=== PATIENT | female | born 1940 | race Caucasian/White ===

== ENCOUNTER 2019-01-11 22:39 | Emergency (ER) | payer MEDICARE, SELFPAY ==
[2019-01-11 22:47] VITALS: BP 132/74; PULSE 90; RESP 17; TEMP 36.8; O2SAT 97; BMI 21.7
--- NOTE | 2019-01-11 22:55 | ED.NECK ---
HPI - Neck Pain/Injury General Chief Complaint: Neck Pain/Injury Stated Complaint: NECK PAIN Time Seen by Provider: 01/11/19 22:55 Source: patient Mode of arrival: ambulatory Limitations: no limitations History of Present Illness HPI Narrative: Patient is a 78-year-old female here for evaluation of bilateral however left greater than right upper back and neck pain. Patient states that the symptoms started yesterday. States she was working out in the yd yesterday. Last evening had quite a bit of discomfort especially with turning her head. No trauma. Has not tried anything for symptoms prior to arrival. Stated that she wanted checked out before she went to sleep this evening. Related Data Home Medications Medication Instructions Recorded Confirmed No Known Home Medications 01/11/19 01/11/19 Allergies Allergy/AdvReac Type Severity Reaction Status Date / Time No Known Allergies Allergy Uncoded 01/11/19 22:51 Review of Systems Constitutional Denies fever(s) and Denies headache(s) ENT Ears, Nose, Mouth, and Throat: Denies vertigo, Denies dizziness, Denies headache(s) and Reports neck pain Cardiovascular Denies chest pain and Denies dyspnea Respiratory Denies dyspnea Gastrointestinal Gastrointestinal: Denies abdominal pain Musculoskeletal Denies back pain, Denies myalgias, Denies arthralgias and Reports neck pain Comments: Neck pain Integumentary/Breasts Denies rash Neurologic Denies behavioral changes, Denies vertigo, Denies dizziness and Denies headache(s) Psychiatric Denies behavioral changes Hematologic/Lymphatic Denies easy bleeding and Denies easy bruising PFSH Surgical History No pertinent past surgical history (Acute) Social History Smoking Status: Never smoker Social History Smoking Status: Never smoker Exam Initial Vital Signs Initial Vital Signs: Vital Signs Temperature 98.2 F 01/11/19 22:47 Pulse Rate 90 01/11/19 22:47 Respiratory Rate 17 01/11/19 22:47 Blood Pressure 132/74 01/11/19 22:47 Pulse Oximetry 97 01/11/19 22:47 Const General: cooperative, comfortable, well developed, well groomed and No acute distress Orientation: alert, awake and oriented x3 HENMT Head: normal to inspection and normocephalic Face and sinus: normal facial exam Neck Lymphatic: No lymphadenopathy Back/Spine/Pelvis Cervical Spine: pain with cervical ROM, No cervical spinal tenderness and No step off deformity Thoracic/Lumbar Spine: No thoracic spinal tenderness and No lumbar spinal tenderness Other: Patient with muscle fullness bilaterally however left greater than right over the trapezius muscle. Skin Lesions: no lesions Rashes: no rashes Neuro General: alert, awake and oriented x3 Cognition: normal cognition Speech: speech normal Extrem General: normal to inspection and capillary refill normal Psych Appearance: grossly normal and well kempt Course Orders Ordered: Discontinued Medications Cyclobenzaprine HCl (Flexeril 10 Mg Prepack) 1 bottle MISC SEEINSTR ONE Stop: 01/11/19 23:02 Last Admin: 01/11/19 23:06 Dose: 1 bottle Vital Signs - 8 hr 01/11/19 22:47 Temperature 98.2 F Pulse Rate 90 Respiratory Rate 17 Blood Pressure 132/74 Pulse Oximetry 97 MDM - Neck Pain/Injury MDM Narrative Medical decision making narrative: Patient without trauma. She is afebrile. She was concerned about meningitis however her physical exam is not consistent with this. She does have muscle fullness in her left trapezius. I do suspect that she is having cervical spinal strain and muscle spasms. Will send home with a prescription for Flexeril. She was informed that this medication can make her drowsy. We discussed the importance of avoiding falling. Discussed return precautions and follow-up instructions. No indication for antibiotics radiologic studies. She expressed understanding and agreement with plan. Discharge Plan Departure Patient Disposition: Home Clinical Impression: Strain of neck muscle Qualifiers: Encounter type: initial encounter Qualified Code(s): S16.1XXA - Strain of muscle, fascia and tendon at neck level, initial encounter Discharge Date/Time: 01/11/19 23:10 Interventions: ED Discharge Assessment Last Done: 01/11/19 23:09 Instructions: DI for Neck Pain Activity Restrictions/Additional Instructions: The medicine you were given this evening can make you drowsy so be careful with walking to avoid falling. You can also use heat and ice and massage. Return to the emergency department for any new or worsening symptoms Prescriptions: No Action No Known Home Medications RF: 0 Referrals: Nelda Stephens MD [Primary Care Provider] -
[2019-01-11] MEDS: CYCLOBENZAPRINE 10 MG PREPACK 1 BOTTLE MISC (23:06)
== END 2019-01-11 23:10 | disposition home or self-care (01) ==
PROVIDERS: Emergency Provider Emergency Medicine; Family Provider Internal Medicine; PCP Internal Medicine
DX: S16.1XXA Strain of muscle, fascia and tendon at neck level, initial encounter (principal); Y93.H2 Activity, gardening and landscaping
CPT/HCPCS: 99282; 99283

== ENCOUNTER → 2019-02-26 16:25 | Outpatient (CLI) | payer MEDICARE, SELFPAY ==
--- NOTE | 2019-02-26 | DI.MG.S_ITS ---
BILATERAL DIGITAL SCREENING MAMMOGRAM 3D/2D WITH CAD: 02/26/2019 CLINICAL: Routine screening. Baseline exam. No prior exams were available for comparison. The tissue of both breasts is heterogeneously dense. This may lower the sensitivity of mammography. Current study was also evaluated with a Computer Aided Detection (CAD) system. No significant masses, calcifications, or other findings are seen in either breast. IMPRESSION: NEGATIVE There is no mammographic evidence of malignancy. A 1 year screening mammogram is recommended. This exam was interpreted at Station ID: [id number]. NOTE: For mammograms, a report in lay terms will be sent to the patient. Approximately 15% of breast malignancies will not be visualized mammographically. In the management of a palpable breast mass, a negative mammogram must not discourage biopsy of a clinically suspicious lesion. Electronically Signed By: lA cee/gilma:02/26/2019 16:58:40 letter sent: Normal Exam ACR BI-RADS Category 1: Negative 3341F
== END ==
PROVIDERS: PCP Internal Medicine; Visit Provider Internal Medicine
DX: Z12.31 Encounter for screening mammogram for malignant neoplasm of breast (principal)
CPT/HCPCS: 77063; 77067

== ENCOUNTER → 2019-08-12 19:21 | Outpatient (ROUT) | payer MEDICARE, SELFPAY ==
[2019-08-12 19:56] LABS: BUN Creatinine Ratio 43.3 (6-22); Blood Urea Nitrogen 26 mg/dL (7-17); Calcium 10.4 mg/dL (8.4-10.2); Carbon Dioxide 25 mmol/L (22-32); Chloride 104 mmol/L (98-107); Estimated Glomerular Filt Rate > 60.0 mL/min (>60); Glucose 96 mg/dL (80-110); HEMOLYSIS 17 (0-50); Potassium 4.6 mmol/L (3.4-5.1); Sodium 138 mmol/L (137-145); Uric Acid 4.3 mg/dL (2.5-6.2)
== END ==
PROVIDERS: PCP Internal Medicine; Visit Provider Internal Medicine
DX: M79.671 Pain in right foot (principal)
CPT/HCPCS: 80048; 84550

== ENCOUNTER → 2019-08-27 13:35 | Outpatient (CLI) | payer MEDICARE, SELFPAY | PROVIDERS: PCP Internal Medicine; Referring Provider Internal Medicine; Visit Provider Internal Medicine | DX: M81.0 Age-related osteoporosis without current pathological fracture (principal); Z78.0 Asymptomatic menopausal state; Z82.62 Family history of osteoporosis | CPT/HCPCS: 77080 ==

== ENCOUNTER → 2020-03-13 13:44 | Outpatient (CLI) | payer MEDICARE, SELFPAY ==
--- NOTE | 2020-03-13 | DI.CT.S_ITS ---
PROCEDURE: CT CHEST WO CON INDICATIONS: short of breath TECHNIQUE: Noncontrast 5 mm thick sections acquired from the pulmonary apices to the posterior costophrenic angles. 1 mm lung window, 5 mm thick coronal and sagittal and 7 mm axial MIP reformats were then acquired. For radiation dose reduction, the following was used: automated exposure control, adjustment of mA and/or kV according to patient size. COMPARISON: [facility], CT, THORAX WITHOUT CONTRAST, 06/29/2017, 11:30. , [facility], CR, CHEST 2VW, 10/06/2011, 10:12. [facility], CR, CHEST 2 VIEW, 06/22/2017, 14:16. FINDINGS: Image quality: Excellent. Lungs and pleura: No acute air space opacities are found but there appears to have been a long-standing disease process ongoing in the medial segment right middle lobe. There earliest available comparison chest plain film is from 10/06/11 and on the lateral view had shown irregular airspace disease diagonally across the cardiac silhouette. This same pattern present on chest plain film imaging 06/22/17. This also was present in the same area on CT scanning 06/29/17 and has only slightly worsened as indicated by a greater degree of peribronchial soft tissue thickening and development of mild cylindrical bronchiectasis. No pleural effusions or pneumothorax. Central and peripheral airways are patent and normal in caliber. Mediastinum: Heart size is normal. No pericardial effusion. No mediastinal adenopathy by size criteria. Thoracic aorta and central pulmonary arteries are normal in size. Esophagus is normal in caliber. No hiatal hernia. Bones and chest wall: No suspicious bony lesions. No vertebral body compression fractures. No axillary or supraclavicular adenopathy by size criteria. Thyroid gland is not well seen. Abdomen: Visualized upper abdominal solid organs and bowel loops appear normal in the absence of contrast. IMPRESSION: Slowly worsening chronic airspace disease within the medial segment right middle lobe from 2012 plain film imaging through the comparison chest CT from June 2017. Mild increased chronic bronchitis, interval development of mild cylindrical bronchiectasis. Low-grade chronic infection can produce such an appearance. No malignancy found. [facility] consultation may be warranted for diagnostic bronchial lavage. Dictated by: Igor Menchaca M.D. on 03/13/2020 at 15:03 Approved by: Igor Menchaca M.D. on 03/13/2020 at 15:11
[2020-03-13 15:41] LABS: BUN Creatinine Ratio 26.4 (6-22); Blood Urea Nitrogen 19 mg/dL (7-17); Calcium 11.2 mg/dL (8.4-10.2); Carbon Dioxide 32 mmol/L (22-32); Chloride 103 mmol/L (98-107); Estimated Glomerular Filt Rate > 60.0 mL/min (>60); Glucose 88 mg/dL (80-110); HEMOLYSIS < 15 (0-50); Potassium 5.2 mmol/L (3.4-5.1); Sodium 139 mmol/L (137-145)
== END ==
PROVIDERS: PCP Internal Medicine; Referring Provider Internal Medicine; Visit Provider Internal Medicine
DX: R06.02 Shortness of breath (principal); R05 Cough; J47.9 Bronchiectasis, uncomplicated; J42 Unspecified chronic bronchitis; M81.0 Age-related osteoporosis without current pathological fracture
CPT/HCPCS: 36415; 71250; 80048

== ENCOUNTER → 2020-03-17 15:06 | Outpatient (CLI) | payer MEDICARE, SELFPAY ==
[2020-03-17 15:47] LABS: Add Manual Diff / Slide Review NO; Basophils Absolute Auto 100 /uL (0-100); Basophils Percent Auto 1.1 % (0-2); Eosinophils Absolute Auto 200 /uL (0-450); Eosinophils Percent Auto 3.6 % (2-4); Hematocrit 43.1 % (36-46); Hemoglobin 14.1 g/dL (12.0-16.0); Lymphocytes Absolute Auto 1400 /uL (1100-4500); Lymphocytes Percent Auto 28.2 % (25-40); Mean Corpuscular HGB Conc 32.8 % (30-36); Mean Corpuscular Volume 91.5 fL (80-100); Monocytes Absolute Auto 400 /uL (0-900); Monocytes Percent Auto 8.9 % (3-14); Neutrophils Absolute Auto 2900 /uL (1500-7000); Neutrophils Percent Auto 58.2 % (50-75); Platelet Count 187 X10^3/uL (150-400); Red Blood Cell Count 4.71 X10^6/uL (4.0-5.2); Red Cell Distribution Width 14.2 % (11.6-14.8); White Blood Cell Count 4.9 X10^3/uL (4.5-11.0)
[2020-03-17 15:58] LABS: Alanine Aminotransferase 17 IU/L (<35); Albumin 4.3 g/dL (3.5-5.0); Albumin Globulin Ratio 1.2 (1.0-2.8); Alkaline Phosphatase 84 U/L (38-126); Aspartate Aminotransferase 28 IU/L (14-36); BUN Creatinine Ratio 22.9 (6-22); Bilirubin Total 0.3 mg/dL (0.2-1.3); Blood Urea Nitrogen 16 mg/dL (7-17); Calcium 10.9 mg/dL (8.4-10.2); Carbon Dioxide 29 mmol/L (22-32); Chloride 103 mmol/L (98-107); Estimated Glomerular Filt Rate > 60.0 mL/min (>60); Globulin 3.6 g/dL (1.7-4.1); Glucose 97 mg/dL (80-110); HEMOLYSIS < 15 (0-50); Potassium 4.3 mmol/L (3.4-5.1); Sodium 138 mmol/L (137-145); Total Protein 7.9 g/dL (6.3-8.2)
[2020-03-17 16:28] LABS: TSH w/ Reflex to FT4 1.97 uIU/mL (0.47-4.68)
[2020-03-18 08:27] LABS: Parathyroid Hormone Int 36 pg/mL (15-65)
[2020-03-19 11:59] LABS: Vitamin D 25 Hydroxy (D3) 50.2 ng/mL (30.0-100.0)
== END ==
PROVIDERS: PCP Internal Medicine; Referring Provider Internal Medicine; Visit Provider Physician Assistant
DX: M81.0 Age-related osteoporosis without current pathological fracture (principal); E83.52 Hypercalcemia; E87.5 Hyperkalemia; R05 Cough
CPT/HCPCS: 36415; 80053; 82306; 83970; 84443; 85025

== ENCOUNTER → 2020-03-27 12:57 | Outpatient (CLI) | payer MEDICARE, SELFPAY ==
--- NOTE | 2020-04-15 14:20 | ONC.SCHED ---
Left message for patient to call to schedule reclast as ordered by Dr. Stephens within the week.
== END ==
PROVIDERS: PCP Internal Medicine; Referring Provider Internal Medicine; Visit Provider Internal Medicine
DX: R05 Cough (principal)
CPT/HCPCS: 87070; 87116; 87205; 87206

== ENCOUNTER → 2020-04-18 12:14 | Outpatient (CLI) | payer MEDICARE, SELFPAY | PROVIDERS: PCP Internal Medicine; Referring Provider Internal Medicine; Visit Provider Internal Medicine | DX: J47.9 Bronchiectasis, uncomplicated (principal) | CPT/HCPCS: 87116; 87206 ==

== ENCOUNTER → 2020-04-22 13:11 | Oncology outpatient (ONC) | payer MEDICARE, SELFPAY ==
[2020-04-22 13:38] VITALS: BP 114/60; PULSE 73; RESP 16; TEMP 36.6; O2SAT 97
[2020-04-22 13:49] LABS: BUN Creatinine Ratio 33.3 (6-22); Blood Urea Nitrogen 24 mg/dL (7-17); Calcium 10.5 mg/dL (8.4-10.2); Carbon Dioxide 30 mmol/L (22-32); Chloride 104 mmol/L (98-107); Estimated Glomerular Filt Rate > 60.0 mL/min (>60); Glucose 115 mg/dL (80-110); HEMOLYSIS < 15 (0-50); Potassium 4.1 mmol/L (3.4-5.1); Sodium 138 mmol/L (137-145)
--- NOTE | 2020-04-22 14:03 | PC.NURSE ---
BUN/CR Patient's BUN elevated today, Dr. Nelda Stephens contacted concerning lab result and reclast infusion. Dr. Stephens said to go ahead with reclast infusion today.
[2020-04-22] MEDS: ZOLEDRONIC ACID 5 MG in SODIUM CHLORIDE 0.9% 100 ML 425 ML IV (14:15)
== END ==
LOC: ONC 13:12
PROVIDERS: PCP Internal Medicine; Referring Provider Internal Medicine; Visit Provider Internal Medicine
DX: M81.0 Age-related osteoporosis without current pathological fracture (principal)
CPT/HCPCS: 36415; 80048; 96365; J3489

== ENCOUNTER → 2020-04-25 17:23 | Outpatient (CLI) | payer MEDICARE, SELFPAY | PROVIDERS: PCP Internal Medicine; Referring Provider Internal Medicine; Visit Provider Internal Medicine | DX: R05 Cough (principal) | CPT/HCPCS: 87070; 87205 ==

== ENCOUNTER → 2020-04-30 10:26 | Outpatient (CLI) | payer MEDICARE, SELFPAY ==
[2020-04-30 12:08] LABS: Add Manual Diff / Slide Review NO; Basophils Absolute Auto 0 /uL (0-100); Basophils Percent Auto 0.5 % (0-2); Eosinophils Absolute Auto 100 /uL (0-450); Hematocrit 39.5 % (36-46); Lymphocytes Absolute Auto 800 /uL (1100-4500); Lymphocytes Percent Auto 9.9 % (25-40); Mean Corpuscular Volume 90.9 fL (80-100); Monocytes Absolute Auto 700 /uL (0-900); Monocytes Percent Auto 8.1 % (3-14); Neutrophils Absolute Auto 6700 /uL (1500-7000); Neutrophils Percent Auto 80.5 % (50-75); Platelet Count 247 X10^3/uL (150-400); Red Blood Cell Count 4.34 X10^6/uL (4.0-5.2); Red Cell Distribution Width 13.9 % (11.6-14.8); White Blood Cell Count 8.3 X10^3/uL (4.5-11.0)
[2020-04-30 12:12] LABS: Alanine Aminotransferase 23 IU/L (<35); Albumin 3.9 g/dL (3.5-5.0); Albumin Globulin Ratio 1.1 (1.0-2.8); Alkaline Phosphatase 83 U/L (38-126); Aspartate Aminotransferase 25 IU/L (14-36); BUN Creatinine Ratio 23.9 (6-22); Bilirubin Total 0.7 mg/dL (0.2-1.3); Blood Urea Nitrogen 16 mg/dL (7-17); Calcium 10.1 mg/dL (8.4-10.2); Carbon Dioxide 30 mmol/L (22-32); Chloride 104 mmol/L (98-107); Estimated Glomerular Filt Rate > 60.0 mL/min (>60); Globulin 3.6 g/dL (1.7-4.1); Glucose 112 mg/dL (80-110); HEMOLYSIS < 15 (0-50); Potassium 4.3 mmol/L (3.4-5.1); Sodium 138 mmol/L (137-145); Total Protein 7.5 g/dL (6.3-8.2)
[2020-04-30 12:16] LABS: Appearance Urine UA CLEAR; Bilirubin Urine UA NEGATIVE (NEGATIVE); Color Urine UA YELLOW; Glucose Urine UA NEGATIVE (Negative); Ketones Urine UA NEGATIVE (NEGATIVE); Leukocyte Esterase Urine UA TRACE (NEGATIVE); Nitrite Urine UA NEGATIVE (Negative); Occult Blood Urine UA TRACE-LYSED (Negative); Protein Urine UA NEGATIVE (Negative); Specific Gravity Urine UA >=1.030 (1.000-1.035); Urobilinogen Urine UA 0.2 E.U./dL (0.2)
[2020-04-30 12:21] LABS: Troponin I < 0.012 ng/mL (0.01-0.034)
[2020-04-30 12:51] LABS: Bacteria Urine Occasional (0-1); Culture Indicated Urine Cult Not Indicated; RBC Urine 0-1/HPF (0-5/HPF); Renal Epithelial Cells Urine 0-1/HPF (0-1/HPF); Squamous Epithelial Cell Urine 1-5 /HPF (0-5/HPF); Transitional Epi Cells Urine 0-1/HPF (0-5/HPF); WBC Urine 0-1/HPF (0-5/HPF)
== END ==
PROVIDERS: PCP Internal Medicine; Referring Provider Internal Medicine; Visit Provider Internal Medicine
DX: R50.9 Fever, unspecified (principal); R07.9 Chest pain, unspecified
CPT/HCPCS: 36415; 80053; 81001; 84484; 85025

== ENCOUNTER → 2020-06-02 12:54 | Outpatient (CLI) | payer MEDICARE, SELFPAY | PROVIDERS: PCP Internal Medicine; Referring Provider Internal Medicine; Visit Provider Internal Medicine | DX: J47.9 Bronchiectasis, uncomplicated (principal) | CPT/HCPCS: 87116; 87206 ==

== ENCOUNTER → 2020-10-08 10:30 | Outpatient (CLI) | payer MEDICARE, SELFPAY ==
--- NOTE | 2020-10-08 10:34 | DI.CT.S_ITS ---
PROCEDURE: CT CHEST WO CON INDICATIONS: Other nonspecific abnormal finding of lung field. Chronic cough TECHNIQUE: Noncontrast 5 mm thick sections acquired from the pulmonary apices to the posterior costophrenic angles. 1 mm lung window, 5 mm thick coronal and sagittal and 7 mm axial MIP reformats were then acquired. For radiation dose reduction, the following was used: automated exposure control, adjustment of mA and/or kV according to patient size. COMPARISON: [facility], CT, THORAX WITHOUT CONTRAST, 06/29/2017, 11:30. [facility], CT, CT CHEST WO CON, 03/13/2020, 14:26. FINDINGS: Image quality: Excellent. Grossly unchanged consolidation and traction bronchiectasis seen in the anterior right middle lobe. There is also scarring atelectasis seen in the lingula. These findings were present on 06/29/17 although mildly progressed. Partially calcified presumed nodular scarring seen within the left apex, grossly unchanged. Few scattered calc despite granulomas are seen. No pleural effusions or pneumothorax. Central and peripheral airways are patent and normal in caliber. Mediastinum: Heart size is normal. Coronary artery calcifications are present. No pericardial effusion. No mediastinal adenopathy by size criteria. Thoracic aorta and central pulmonary arteries are normal in size. Esophagus is normal in caliber. No hiatal hernia. Bones and chest wall: No suspicious bony lesions. No vertebral body compression fractures. No axillary or supraclavicular adenopathy by size criteria. Thyroid is grossly unremarkable Abdomen: 2 mm nonobstructive left nephrolithiasis. IMPRESSION: Overall, grossly stable appearance since 03/13/20. Prominent scarring and traction bronchiectasis seen within the lingula and right middle lobe. Additional chronic and incidental findings as above. Dictated by: Leighton Monzon M.D. on 10/08/2020 at 14:48 Approved by: Leighton Monzon M.D. on 10/08/2020 at 14:57
== END ==
PROVIDERS: PCP Internal Medicine; Referring Provider Internal Medicine; Visit Provider Internal Medicine
DX: R91.1 Solitary pulmonary nodule (principal); R05 Cough; I25.10 Atherosclerotic heart disease of native coronary artery without angina pectoris; N20.0 Calculus of kidney; J47.9 Bronchiectasis, uncomplicated
CPT/HCPCS: 71250

== ENCOUNTER → 2020-11-25 11:57 | Outpatient (CLI) | payer MEDICARE, SELFPAY ==
--- NOTE | 2020-11-25 12:07 | DI.CT.S_ITS ---
PROCEDURE: CT HEAD/BRAIN WO CON INDICATIONS: Headache, unspecified TECHNIQUE: Noncontrast 4.5 mm thick angled axial sections acquired from the foramen magnum to the vertex, with coronal and sagittal reformats. For radiation dose reduction, the following was used: automated exposure control, adjustment of mA and/or kV according to patient size. COMPARISON: None. FINDINGS: Image quality: Excellent. CSF spaces: Basal cisterns are patent. No extra-axial fluid collections. The ventricles are symmetric in size and shape. Brain: No intracranial bleeds or masses. There is cerebral volume loss for age, with resultant ventricular and sulcal prominence. There are periventricular and deep white matter chronic small vessel ischemic changes. There is intracranial internal carotid artery atherosclerosis. Skull and face: Calvarium and visualized facial bones appear intact, without suspicious lesions. Sinuses: Visualized sinuses and mastoids are clear. IMPRESSION: No acute intracranial hemorrhage is seen. No displaced calvarial fracture can be seen. Note is made of age-appropriate brain parenchymal volume loss and chronic small vessel ischemic changes. Dictated by: Reinaldo Wei M.D. on 11/25/2020 at 11:23 Approved by: Reinaldo Wei M.D. on 11/25/2020 at 11:24
== END ==
PROVIDERS: PCP Internal Medicine; Referring Provider Internal Medicine; Visit Provider Internal Medicine
DX: R51.9 Headache, unspecified (principal)
CPT/HCPCS: 70450

== ENCOUNTER → 2021-04-19 15:25 | Outpatient (CLI) | payer MEDICARE, SELFPAY ==
--- NOTE | 2021-04-19 15:26 | DI.MG.S_ITS ---
BILATERAL DIGITAL SCREENING MAMMOGRAM 3D/2D WITH CAD: 04/19/2021 CLINICAL: Routine screening. Comparison is made to exam dated: 02/26/2019 [facility]. The tissue of both breasts is heterogeneously dense. This may lower the sensitivity of mammography. Current study was also evaluated with a Computer Aided Detection (CAD) system. No significant masses, calcifications, or other findings are seen in either breast. There has been no significant interval change. IMPRESSION: NEGATIVE There is no mammographic evidence of malignancy. A 1 year screening mammogram is recommended. This exam was interpreted at Station ID: [id number]. NOTE: For mammograms, a report in lay terms will be sent to the patient. Approximately 15% of breast malignancies will not be visualized mammographically. In the management of a palpable breast mass, a negative mammogram must not discourage biopsy of a clinically suspicious lesion. Electronically Signed By: Al cee/gilma:04/20/2021 07:49:11 letter sent: Normal Exam ACR BI-RADS Category 1: Negative 3341F
== END ==
PROVIDERS: PCP Family Medicine; Referring Provider Family Medicine; Visit Provider Family Medicine
DX: Z12.31 Encounter for screening mammogram for malignant neoplasm of breast (principal)
CPT/HCPCS: 77063; 77067

== ENCOUNTER → 2021-04-30 09:06 | Outpatient (CLI) | payer MEDICARE, SELFPAY ==
--- NOTE | 2021-04-30 09:07 | DI.MRI.S_ITS ---
PROCEDURE: MR HEAD/BRAIN WO CON INDICATIONS: Persistent headache status post concussion TECHNIQUE: Noncontrast axial T1 spin echo, axial T2 fast spin echo, sagittal and axial FLAIR, coronal T2 fast spin echo, axial gradient echo, axial diffusion and ADC through the brain. COMPARISON: None. FINDINGS: Cerebrum, Cerebellum and Brainstem: Mild cerebral and cerebellar volume loss as well as mild multifocal hyperintensities in the deep and subcortical white matter present. The diffusion sequence is normal without evidence of acute infarct. No intracranial hemorrhage, mass lesion or midline shift. Basal cisterns and foramen magnum contain appropriate anatomy and vascular flow voids. No evidence of dural or leptomeningeal thickening. Ventricles: Appropriate in size and position. No hydrocephalus. Skull Base: The bony sella, pituitary gland and infundibulum unremarkable. Clivus and craniovertebral relationships are appropriate. Visualized portions of the seventh and eighth cranial nerve complexes and internal auditory canals are within normal limits. Scalp and Calvarium: The scalp is unremarkable. Underlying calvarium has an appropriate marrow signal. Paranasal Sinuses: Visualized portions of the paranasal sinuses are clear. Mastoids: Unremarkable as visualized. No mastoid effusion present. Orbits: The orbits, globes and ocular muscles are unremarkable. IMPRESSION: Mild atrophy and white matter chronic ischemic change without intracranial hemorrhage, infarct or mass lesion. Approved by: Joao Berger M.D. on 04/30/2021 at 10:57
== END ==
PROVIDERS: PCP Family Medicine; Referring Provider Family Medicine; Visit Provider Family Medicine
DX: R51.9 Headache, unspecified (principal); S06.0X9A Concussion with loss of consciousness of unspecified duration, initial encounter
CPT/HCPCS: 70551

== ENCOUNTER → 2022-08-02 11:40 | Outpatient (CLI) | payer MEDICARE, SELFPAY | PROVIDERS: PCP Family Medicine; Referring Provider Family Medicine; Visit Provider Family Medicine | DX: M81.0 Age-related osteoporosis without current pathological fracture (principal); Z78.0 Asymptomatic menopausal state; R51.9 Headache, unspecified; Z90.710 Acquired absence of both cervix and uterus | CPT/HCPCS: 77080 ==

== ENCOUNTER → 2022-11-04 09:11 | Outpatient (CLI) | payer MEDICARE, SELFPAY ==
[2022-11-04 09:54] LABS: Add Manual Diff / Slide Review NO; Basophils Absolute Auto 0 /uL (0-100); Eosinophils Absolute Auto 200 /uL (0-450); Eosinophils Percent Auto 3.3 % (2-4); Hematocrit 42.2 % (36-46); Hemoglobin 14.2 g/dL (12.0-16.0); Lymphocytes Absolute Auto 1300 /uL (1100-4500); Lymphocytes Percent Auto 27.3 % (25-40); Mean Corpuscular HGB Conc 33.7 % (30-36); Mean Corpuscular Hemoglobin 30.6 PG (26-34); Mean Corpuscular Volume 90.8 fL (80-100); Monocytes Absolute Auto 400 /uL (0-900); Monocytes Percent Auto 9.3 % (3-14); Neutrophils Absolute Auto 2800 /uL (1500-7000); Neutrophils Percent Auto 59.1 % (50-75); Platelet Count 140 X10^3/uL (150-400); Red Blood Cell Count 4.64 X10^6/uL (4.0-5.2); Red Cell Distribution Width 14.2 % (11.6-14.8); White Blood Cell Count 4.8 X10^3/uL (4.5-11.0)
[2022-11-04 09:59] LABS: Alanine Aminotransferase 17 IU/L (<35); Albumin 4.1 g/dL (3.5-5.0); Albumin Globulin Ratio 1.2 (1.0-2.8); Alkaline Phosphatase 65 U/L (38-126); Aspartate Aminotransferase 25 IU/L (14-36); BUN Creatinine Ratio 26.2 (6-22); Bilirubin Total 0.4 mg/dL (0.2-1.3); Blood Urea Nitrogen 16 mg/dL (7-17); Calcium 9.9 mg/dL (8.4-10.2); Carbon Dioxide 27 mmol/L (22-32); Chloride 106 mmol/L (98-107); Estimated Glomerular Filt Rate > 60 mL/min (>60); Globulin 3.3 g/dL (1.7-4.1); Glucose 89 mg/dL (80-110); HEMOLYSIS < 15 (0-50); Potassium 4.5 mmol/L (3.4-5.1); Sodium 138 mmol/L (137-145); Total Protein 7.4 g/dL (6.3-8.2)
[2022-11-04 10:32] LABS: TSH w/ Reflex to FT4 1.33 uIU/mL (0.47-4.68)
[2022-11-05 03:40] LABS: Labcorp Hemoglobin (Hb) A1c 5.7 % (4.8-5.6)
== END ==
PROVIDERS: PCP Family Medicine; Referring Provider Family Medicine; Visit Provider Family Medicine
DX: Z00.00 Encounter for general adult medical examination without abnormal findings (principal); M81.0 Age-related osteoporosis without current pathological fracture
CPT/HCPCS: 36415; 80053; 83036; 84443; 85025

== ENCOUNTER → 2022-11-08 15:14 | Outpatient (CLI) | payer MEDICARE, SELFPAY ==
--- NOTE | 2022-11-08 15:15 | DI.MG.S_ITS ---
BILATERAL DIGITAL SCREENING MAMMOGRAM 3D/2D WITH CAD: 11/08/2022 CLINICAL: Routine screening. Comparison is made to exams dated: 04/19/2021 mammogram and 02/26/2019 mammogram - [facility]. Both breasts are heterogeneously dense, which may obscure small masses (category c / 51-75% glandular tissue). Current study was also evaluated with a Computer Aided Detection (CAD) system. No significant masses, calcifications, or other findings are seen in either breast. There has been no significant interval change. IMPRESSION: NEGATIVE There is no mammographic evidence of malignancy. A 1 year screening mammogram is recommended. Based on the Tyrer Cuzick model (a risk assessment model) the patient's lifetime risk is 2.0% and her 10 year risk is 0.0%. According to the ACR, ACS, and NCCN guidelines, an annual breast MRI exam along with mammogram is recommended if the patient's lifetime risk is 20% or greater. This exam was interpreted at Station ID: [id number]. NOTE: For mammograms, a report in lay terms will be sent to the patient. Approximately 15% of breast malignancies will not be visualized mammographically. In the management of a palpable breast mass, a negative mammogram must not discourage biopsy of a clinically suspicious lesion. Electronically Signed By: Aminata pagan/gilma:11/09/2022 13:02:04 letter sent: Normal Exam ACR BI-RADS Category 1: Negative 3341F
== END ==
PROVIDERS: PCP Family Medicine; Referring Provider Family Medicine; Visit Provider Family Medicine
DX: Z12.31 Encounter for screening mammogram for malignant neoplasm of breast (principal)
CPT/HCPCS: 77063; 77067

== ENCOUNTER 2023-01-19 07:56 | Day surgery (SDC) | payer MEDICARE, SELFPAY ==
[2023-01-19 08:14] VITALS: BP 123/67; PULSE 82; RESP 17; TEMP 36.2; O2SAT 100
[2023-01-19] MEDS: LACTATED RINGERS 1,000 ML 42 ML IV (08:25)
--- NOTE | 2023-01-19 09:06 | P.HP_ITS ---
History of Present Illness History of Present Illness Date Patient Seen: 01/19/23 Time Patient Seen: 09:06 Chief complaint: Screening Colonoscopy Narrative: Lubna is an 82-year-old woman who is here for colonoscopy. She has never had one before. Her daughter recently had a colonoscopy and had polyps removed. She has no rectal bleeding and no known family history of colon cancer. [facility] Medical History Concussion Headache Osteoporosis Postconcussion syndrome Pre-diabetes Preventative health care Seasonal allergic rhinitis Well adult exam Surgical History No pertinent past surgical history Social History household members: none Smoking Status: Never smoker alcohol intake: current Meds Home Medications and Allergies Home Medications Medication Instructions Recorded Confirmed Type fexofenadine 180 mg tablet 180 mg PO DAILY #30 tabs 04/27/21 01/19/23 Rx (Cat Allergy) denosumab 60 mg/mL subcutaneous 60 mg SUBCUT [id number] osteoporosi 10/21/22 01/19/23 Rx syringe (Prolia) #1 mL Allergies Allergy/AdvReac Type Severity Reaction Status Date / Time mannitol [From Reclast] AdvReac Intermediate Rash Verified 01/19/23 08:10 water for injection,sterile AdvReac Intermediate Rash Verified 01/19/23 08:10 [From Reclast] zoledronic acid AdvReac Intermediate Rash Verified 01/19/23 08:10 [From Reclast] Exam Vital Signs (past 8 hours): - 01/19/23 08:14 Temperature 97.2 F L Pulse Rate 82 Respiratory Rate 17 Blood Pressure 123/67 Pulse Oximetry 100 Oxygen Delivery Method Room Air Oxygen Delivery Method Room Air Const General: healthy appearing Assessment & Plan Assessment and plan (1) Colon cancer screening: Status: Acute Plan We reviewed the risks and benefits of colonoscopy for colon cancer screening and she would like to proceed.
--- NOTE | 2023-01-19 09:45 | P.OP.COLON_ITS ---
Operative Date/Time/Diagnoses Date of procedure: 01/19/23 Time of procedure: 09:45 Pre-op diagnosis: Colon cancer screening Post-op diagnosis: same Procedure & Clinicians Study performed: Colonoscopy Same procedure as scheduled: Yes Surgeon: Ankit Zee Procedure Notes Procedure in detail: Surgeon: Ankit Zee MD Anesthesia: Chuy Mccord CRNA Procedure: The patient was brought to the endoscopy suite, placed in left lateral decubitus position. The patient was connected to monitoring devices. A time-out was performed. Sedation was administered. Once the patient was adequately sedated, a digital rectal exam was performed and was normal. The scope was then inserted and advanced to the cecum where the appendiceal orifice was identified and photographed. The scope was then slowly withdrawn over greater than 6 minutes. The mucosa was thoroughly inspected. No polyps or ot her abnormalities were seen. The scope was retroflexed in the rectum. Mild internal hemorrhoids were noted. The scope was straightened and removed. The patient was awakened and brought to recovery. Scope withdrawal time: 9 minutes Sedation time: 17 minutes EBL: 0 Findings: Normal colon Post-procedure Disposition: PACU
[2023-01-19 09:49] VITALS: BP 119/61; PULSE 67; RESP 16; TEMP 36.8; O2SAT 98
[2023-01-19 09:53] VITALS: BP 122/77; PULSE 66; RESP 16; O2SAT 98
[2023-01-19 10:02] VITALS: BP 122/72; PULSE 67; RESP 16; TEMP 36.8; O2SAT 98
[2023-01-19 10:08] VITALS: BP 122/72; PULSE 66; RESP 15; TEMP 36.1; O2SAT 98
== END 2023-01-19 10:53 | disposition home or self-care (01) ==
PROVIDERS: PCP Family Medicine; Referring Provider Surgery; Visit Provider Surgery
PROC: 0DJD8ZZ Inspection of Lower Intestinal Tract, Via Natural or Artificial Opening Endoscopic (ICD-10-PCS; CPT 45378; principal; 2023-01-19 09:00)
DX: Z12.11 Encounter for screening for malignant neoplasm of colon (principal)
CPT/HCPCS: G0121; J2704

== ENCOUNTER → 2023-03-09 09:16 | Outpatient (CLI) | payer MEDICARE, SELFPAY ==
--- NOTE | 2023-03-09 09:18 | DI.RAD.S_ITS ---
PROCEDURE: XR KNEE LT 3V INDICATIONS: knee pain, medial x 2 mos TECHNIQUE: 3 views of the knee were acquired. COMPARISON: None. FINDINGS: Bones: No fractures or dislocations. No suspicious bony lesions. Tricompartmental osteoarthritic changes with moderate joint space narrowing of the medial and lateral compartments and marginal spurring. Soft tissues: Small to moderate joint effusion. No suspicious soft tissue calcifications. Chondrocalcinosis IMPRESSION: 1. Moderate tricompartmental osteoarthritic changes. 2. Chondrocalcinosis is present. Differential diagnosis includes but is not limited to hemochromatosis, hyperparathyroidism and CPPD. Dictated by: Abraham Alfredo M.D. on 03/09/2023 at 11:01 Approved by: Abraham Alfredo M.D. on 03/09/2023 at 11:03
== END ==
PROVIDERS: PCP Family Medicine; Referring Provider Physician Assistant; Visit Provider Physician Assistant
DX: M11.262 Other chondrocalcinosis, left knee (principal); M25.569 Pain in unspecified knee
CPT/HCPCS: 73562

== ENCOUNTER → 2023-03-17 14:17 | Outpatient (CLI) | payer MEDICARE, SELFPAY ==
[2023-03-17 15:35] LABS: Add Manual Diff / Slide Review NO; Basophils Absolute Auto 100 /uL (0-100); Basophils Percent Auto 1.3 % (0-2); Eosinophils Absolute Auto 100 /uL (0-450); Hematocrit 39.1 % (36-46); Hemoglobin 12.9 g/dL (12.0-16.0); Lymphocytes Absolute Auto 1300 /uL (1100-4500); Mean Corpuscular HGB Conc 33.1 % (30-36); Mean Corpuscular Hemoglobin 30.2 PG (26-34); Monocytes Absolute Auto 500 /uL (0-900); Monocytes Percent Auto 10.8 % (3-14); Neutrophils Absolute Auto 2700 /uL (1500-7000); Neutrophils Percent Auto 56.9 % (50-75); Platelet Count 158 X10^3/uL (150-400); Red Blood Cell Count 4.29 X10^6/uL (4.0-5.2); Red Cell Distribution Width 13.7 % (11.6-14.8); White Blood Cell Count 4.7 X10^3/uL (4.5-11.0)
[2023-03-17 15:48] LABS: Uric Acid 4.5 mg/dL (2.5-6.2)
[2023-03-18 10:11] LABS: Calcium 10.3 mg/dL (8.7-10.3); Parathyroid Hormone, Intact 35 pg/mL (15-65)
== END ==
PROVIDERS: PCP Family Medicine; Referring Provider Physician Assistant; Visit Provider Physician Assistant
DX: M11.269 Other chondrocalcinosis, unspecified knee (principal); M17.11 Unilateral primary osteoarthritis, right knee
CPT/HCPCS: 36415; 82306; 82310; 83970; 84550; 85025

== ENCOUNTER → 2023-12-01 09:51 | Outpatient (CLI) | payer OTHER, SELFPAY ==
[2023-12-01 11:27] LABS: Add Manual Diff / Slide Review NO; Basophils Absolute Auto 0 /uL (0-100); Eosinophils Absolute Auto 200 /uL (0-450); Eosinophils Percent Auto 4.5 % (2-4); Hematocrit 41.3 % (36-46); Hemoglobin 13.7 g/dL (12.0-16.0); Lymphocytes Absolute Auto 1000 /uL (1100-4500); Mean Corpuscular HGB Conc 33.3 % (30-36); Mean Corpuscular Hemoglobin 30.5 PG (26-34); Mean Corpuscular Volume 91.6 fL (80-100); Monocytes Absolute Auto 400 /uL (0-900); Monocytes Percent Auto 10.1 % (3-14); Neutrophils Absolute Auto 2500 /uL (1500-7000); Neutrophils Percent Auto 59.4 % (50-75); Platelet Count 187 X10^3/uL (150-400); Red Blood Cell Count 4.51 X10^6/uL (4.0-5.2); Red Cell Distribution Width 14.5 % (11.6-14.8); White Blood Cell Count 4.2 X10^3/uL (4.5-11.0)
[2023-12-01 17:42] LABS: Alanine Aminotransferase 18 IU/L (<35); Albumin 4.2 g/dL (3.5-5.0); Albumin Globulin Ratio 1.5 (1.0-2.8); Alkaline Phosphatase 59 U/L (38-126); Aspartate Aminotransferase 27 IU/L (14-36); BUN Creatinine Ratio 28.8 (6-22); Bilirubin Total 0.7 mg/dL (0.2-1.3); Blood Urea Nitrogen 19 mg/dL (7-17); Calcium 10.5 mg/dL (8.4-10.2); Carbon Dioxide 28 mmol/L (22-32); Chloride 108 mmol/L (98-107); Cholesterol 259 mg/dL (140-199); Estimated Glomerular Filt Rate > 60 mL/min (>60); Globulin 2.8 g/dL (1.7-4.1); Glucose 94 mg/dL (80-110); HDL Cholesterol 80 mg/dL (40-60); HEMOLYSIS < 15 (0-50); LDL Cholesterol Calculated 161 mg/dL (<100); Potassium 4.8 mmol/L (3.4-5.1); Sodium 140 mmol/L (137-145); Triglycerides 92 mg/dL (35-150)
[2023-12-01 17:58] LABS: TSH w/ Reflex to FT4 1.36 uIU/mL (0.47-4.68)
== END ==
PROVIDERS: PCP Family Medicine; Referring Provider Family Medicine; Visit Provider Family Medicine
DX: Z00.00 Encounter for general adult medical examination without abnormal findings (principal); R73.03 Prediabetes
CPT/HCPCS: 36415; 80053; 80061; 84443; 85025

== ENCOUNTER → 2024-04-02 14:12 | Outpatient (CLI) | payer OTHER, SELFPAY ==
--- NOTE | 2024-04-02 14:13 | DI.RAD.S_ITS ---
PROCEDURE: XR KNEE RT 3V INDICATIONS: Chronic knee pain with weight-bearing discomfort and swellin TECHNIQUE: 3 views of the knee were acquired. COMPARISON: [facility], CR, XR KNEE LT 3V, 03/09/2023, 9:39. FINDINGS: Bones: There are no osseous abnormalities. Joints: Moderate patellofemoral and severe medial tibial femoral degeneration appreciated. Small effusion noted. Soft tissues: Normal IMPRESSION: Degeneration. Small effusion. Dictated by: Pascual Lincoln M.D. on 04/03/2024 at 6:41 Approved by: Pascual Lincoln M.D. on 04/03/2024 at 6:42
--- NOTE | 2024-04-02 14:13 | DI.RAD.S_ITS ---
PROCEDURE: XR KNEE LT 3V INDICATIONS: Chronic knee pain with weight-bearing discomfort and swellin TECHNIQUE: 3 views of the knee were acquired. COMPARISON: [facility], , XR KNEE LT 3V, 03/09/2023, 9:39. FINDINGS: Bones: There are erosive changes in the medial patellar facet on the sunrise view which could indicate inflammation or infection. Small effusion noted. Joints: Mild degenerative changes present at both patellofemoral and tibiofemoral joint with chondrocalcinosis in the menisci. Soft tissues: Normal IMPRESSION: Erosion of the articular surface of the medial patellar facet which may indicate infection. Small effusion noted. Consider diagnostic aspiration including culture Mild patellofemoral and tibial femoral degeneration with chondrocalcinosis of menisci Dictated by: Pascual Lincoln M.D. on 04/03/2024 at 10:18 Approved by: Pascual Lincoln M.D. on 04/03/2024 at 10:21
--- NOTE | 2024-04-02 14:13 | DI.RAD.S_ITS ---
PROCEDURE: XR CHEST 2V INDICATIONS: Chronic cough, history of asbestos exposure TECHNIQUE: 2 views of the chest were acquired. COMPARISON: [facility], , CHEST 2 VIEW, 06/22/2017, 14:16. FINDINGS: Heart, mediastinum and pulmonary vascular: Heart is normal in size and configuration. Mediastinum is unremarkable. Pulmonary vascular is normal. Lungs: A 2.6 cm pleural based nodule has developed in the posterior right lower lobe region since the comparison 2017 study. The remaining lungs show mild chronic bronchitis or asthma. Pleural spaces: Normal-no effusions or pneumothorax. Bones and soft tissues: Normal IMPRESSION: New 2.6 cm pleural-based nodule posterior right lower lobe. Suggest chest CT Dictated by: Pascual Lincoln M.D. on 04/03/2024 at 6:36 Approved by: Pascual Lincoln M.D. on 04/03/2024 at 6:39
== END ==
LOC: RAD 14:13
PROVIDERS: PCP Family Medicine; Referring Provider Family Medicine; Visit Provider Family Medicine
DX: M17.0 Bilateral primary osteoarthritis of knee (principal); M25.461 Effusion, right knee; M25.462 Effusion, left knee; M11.262 Other chondrocalcinosis, left knee; R91.1 Solitary pulmonary nodule; M25.561 Pain in right knee; M25.562 Pain in left knee; G89.29 Other chronic pain; Z77.090 Contact with and (suspected) exposure to asbestos
CPT/HCPCS: 71046; 73562

== ENCOUNTER → 2024-05-22 11:22 | Outpatient (CLI) | payer MEDICARE, SELFPAY ==
--- NOTE | 2024-05-22 11:25 | DI.CT.S_ITS ---
PROCEDURE: CT CHEST WO CON INDICATIONS: New lung nodule, history of asbestos exposure TECHNIQUE: Noncontrast 5 mm thick sections acquired from the pulmonary apices to the posterior costophrenic angles. 1 mm lung window, 5 mm thick coronal and sagittal and 7 mm axial MIP reformats were then acquired. For radiation dose reduction, the following was used: automated exposure control, adjustment of mA and/or kV according to patient size. COMPARISON: [facility], CT, CT CHEST WO CON, 10/08/2020, 10:42. FINDINGS: Image quality: Diagnostic. Lungs and Pleura: There is a solid mass in the posterior right lower lung measuring 2.1 x 1.7 by 1.3 cm which has spiculated, irregular margins and tiny surrounding satellite nodules. Additionally, there are a few other scattered, peripherally based irregular nodules, specifically in the lateral lingula and anterior right upper lobe associated with peripheral airway thickening, scattered tree-in-bud nodular opacities, chronic appearing atelectasis and bronchiectasis in the right middle lobe and lingula. No ground-glass opacities or pleural effusions. No significant pleural plaquing. There is trace biapical pleural thickening and tiny left apical calcification. Lower Neck: No enlarged lymph nodes. Thyroid: Normal CT appearance. Axillae: No enlarged lymph nodes. Chest Wall: No suspicious chest wall mass. Bones: No suspicious bone lesions. Mild degenerative changes in the thoracic spine. Heart: Heart size is normal. No pericardial effusion. Mild coronary artery calcification. Thoracic Vessels: Ectatic ascending aorta measuring 3.9 cm AP diameter. Normal caliber pulmonary arterial tree. Mediastinum and Leigh: Several nonenlarged calcified right hilar and mediastinal lymph nodes. No pathologically enlarged lymph node. Esophagus: No wall thickening. No hiatal hernia. Upper Abdomen: Nonobstructing upper pole left renal calculus. Visible portions of upper abdominal organs are otherwise normal. IMPRESSION: Interval development of 2.1 cm right posterior lower lobe solid lung nodule suspicious for malignancy given morphology. Infection and round atelectasis is less likely. Correlate with any symptoms of an acute infection and consider tissue acquisition when possible. There are several areas of chronic scattered tree-in-bud nodularity, bronchial wall thickening, bronchiectasis, and atelectasis. 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 Nonenlarged calcified mediastinal and hilar lymph nodes suggesting exposure to prior granulomatous disease. Dictated by: Aminata Pascual M.D. on 05/22/2024 at 22:06 Approved by: Aminata Pascual M.D. on 05/22/2024 at 22:20
== END ==
PROVIDERS: PCP Family Medicine; Referring Provider Family Medicine; Visit Provider Family Medicine
DX: R91.1 Solitary pulmonary nodule (principal); I89.8 Other specified noninfective disorders of lymphatic vessels and lymph nodes; J47.9 Bronchiectasis, uncomplicated; J98.11 Atelectasis; I25.10 Atherosclerotic heart disease of native coronary artery without angina pectoris; M47.814 Spondylosis without myelopathy or radiculopathy, thoracic region; I77.810 Thoracic aortic ectasia; Z77.090 Contact with and (suspected) exposure to asbestos
CPT/HCPCS: 71250

== ENCOUNTER → 2024-07-04 09:48 | Outpatient (CLI) | payer MEDICARE, SELFPAY | LOC: RESP 09:49 | PROVIDERS: PCP Family Medicine; Referring Provider Student in an Organized Health Care Education/Training Program; Visit Provider Student in an Organized Health Care Education/Training Program | DX: R91.1 Solitary pulmonary nodule (principal); R94.2 Abnormal results of pulmonary function studies; Z77.090 Contact with and (suspected) exposure to asbestos | CPT/HCPCS: 94060; 94726; 94729 ==

== ENCOUNTER → 2025-05-01 10:17 | Outpatient (CLI) | payer MEDICARE, SELFPAY ==
--- NOTE | 2025-05-01 16:46 | DI.NM.S_ITS ---
DATE OF SERVICE: 05/01/2025 EXERCISE TREADMILL STRESS TEST PROCEDURE: Exercise treadmill stress test without imaging. ORDERING PROVIDER: Dr. Pascual Cee. INDICATIONS: The patient is an 84-year-old female with atypical chest discomfort. FINDINGS: 1. The patient was able to exercise for 6 minutes 59 seconds on a standard Calvin protocol suggesting excellent exercise capacity with an CARA of -54%, achieving 10.1 METS. 2. She had a normal heart rate and blood pressure response to exercise, achieving a maximum heart rate of 146 bpm (107% of her predicted maximum). 3. She had moderate exertional dyspnea but no chest discomfort or other anginal symptoms. 4. Her resting ECG shows sinus rhythm with normal ST segments. There are no significant ST-segment shifts or arrhythmias with stress although she develops brief ventricular bigeminy in recovery without other ventricular ectopy. IMPRESSION: 1. Normal exercise treadmill stress test for ischemia. 2. Excellent exercise capacity without angina. 3. No arrhythmias except for brief ventricular bigeminy in early recovery that was asymptomatic and without other ventricular ectopy. Lubna Smallwood - HYUN/efrem/LILLIAN doc#: [id number]/job#: [id number] dd: 05/01/2025 16:20:00 dt: 05/01/2025 16:34:00 DICTATING MD/COPIES TO: Cosmo Mirza MD; John Cee, COPIES MNE: JULI;
== END ==
PROVIDERS: PCP Family Medicine; Referring Provider Family Medicine; Visit Provider Family Medicine
DX: R07.89 Other chest pain (principal); E78.00 Pure hypercholesterolemia, unspecified
CPT/HCPCS: 93017

== ENCOUNTER → 2025-05-22 08:33 | Outpatient (CLI) | payer MEDICARE, SELFPAY ==
--- NOTE | 2025-05-22 08:34 | DI.CT.S_ITS ---
PROCEDURE: CT CHEST WO CON
== END ==
PROVIDERS: PCP Family Medicine; Referring Provider Student in an Organized Health Care Education/Training Program; Visit Provider Student in an Organized Health Care Education/Training Program
DX: R91.8 Other nonspecific abnormal finding of lung field (principal); I77.810 Thoracic aortic ectasia
CPT/HCPCS: 71250